=== PATIENT | male | born 1950 | race Caucasian/White ===

== ENCOUNTER 2018-03-16 10:32 | Outpatient (CLI) | payer MEDICARE ==
--- NOTE | 2018-03-16 15:04 | RAD ---
BARIUM SWALLOW ESOPHAGUS: History: Dysphasia. Patient with previous history of esophageal dilatation. The patient also has a hi story of Parkinson's disease. Dose: 1 minute fluoroscopy, DAP 974 mGy*cm^2. FINDINGS: Barium sulfate was given orally. Spot images obtained. The esophagus is unremarkable. No evidence of esophageal webs, bands or stricture seen. The barium wa s ingested without significant abnormalities. It passes into the stomach without difficulty. No signi ficant evidence of distal esophageal abnormalities seen. IMPRESSION: Normal esophagram without significant evidence of high grade esophageal stenosis. POS: BHAVANA
== END 2018-03-16 10:33 | disposition home or self-care (01) ==
LOC: RAD 10:32
PROVIDERS: ATTEND Internal Medicine Geriatric Medicine
DX: R13.14 Dysphagia, pharyngoesophageal phase (principal); C82.98 Follicular lymphoma, unspecified, lymph nodes of multiple sites
CPT/HCPCS: 36415; 74220; 80053; 82248; 83615; 84100; 84550

== ENCOUNTER 2018-10-09 11:47 | Inpatient (IN) | payer MEDICARE ==
[2018-10-09 12:45] LABS: #Eosinphils 0.1 thou/uL (0.0-0.7); #Lymphocytes 1.6 thou/uL (1.20-3.40); #Monocytes 1.3 thou/uL (0.11-0.59); #Neutrophils 10.1 thou/uL (1.40-6.50); %Basophils 0.3 % (0.0-1.0); %Eosinophils 0.6 % (0.0-10.0); %Lymphocytes 11.9 % (21.0-51.0); %Monocytes 9.8 % (0.0-10.0); %Neutrophils 77.4 % (42.0-75.0); Hemoglobin 14.7 g/dL (14.0-18.0); Mean Corpuscular HGB CONC 33.3 g/dL (32.0-36.0); Mean Corpuscular Volume 96.2 fL (78.0-98.0); Mean Platelet Volume 7.2 fL (7.4-10.4); Platelet Count 214 thou/uL (130-400); RBC Distribution Width 11.7 % (11.5-14.5); Red Blood Cell (RBC) Count 4.59 mill/uL (4.70-6.10); White Blood Cell (WBC) Count 13.1 thou/uL (4.8-10.8)
[2018-10-09] MEDS ORDERED: Ondansetron PF 4 MG/2 ML Vial ONE ×2 (12:52→15:48)
[2018-10-09] MEDS ORDERED: Morphine 4 MG/ML VIAL ONE (12:52)
[2018-10-09] MEDS ORDERED: Piperacillin/Tazobactam 4.5 GM VIAL ONE (13:03)
[2018-10-09 13:06] LABS: ALT (SGPT) 20 U/L (8-55); AST (SGOT) 16 U/L (5-34); Albumin 4.1 g/dL (3.4-4.8); Alkaline Phosphatase 36 U/L (40-150); Anion Gap 12 mmol/L (10-20); BUN (Urea Nitrogen) 15 mg/dL (8.4-25.7); Bilirubin, Total 2.7 mg/dL (0.2-1.2); Calc. Creatinine Clearance 0 mL/min (70-130); Calcium 9.3 mg/dL (7.8-10.44); Carbon Dioxide 23 mmol/L (23-31); Chloride 105 mmol/L (98-107); Estimated GFR-MDRD 86; Globulin 2.7 g/dL (2.4-3.5); Glucose 105 mg/dL (80-115); Potassium 3.9 mmol/L (3.5-5.1); Protein, Total 6.8 g/dL (5.8-8.1); Sodium 136 mmol/L (136-145)
[2018-10-09] MEDS ORDERED: Bupivacaine PF 0.5% 30 ML VIAL ONE (13:08)
[2018-10-09] MEDS ORDERED: Bacitracin Zinc Ointment 30 gm TUBE ONE (13:08)
[2018-10-09] MEDS ORDERED: Fentanyl 100 MCG/2 ML VIAL ONE (13:23)
[2018-10-09] MEDS ORDERED: Bisacodyl 10 MG SUPP PR PRN (13:27)
[2018-10-09] MEDS ORDERED: Acetaminophen 325 MG TAB PO PRN (13:27)
[2018-10-09] MEDS ORDERED: TETANUS AND DIPHTHERIA TOX/PF 0.5 ML DISP.SYRIN IM SCH (13:30)
[2018-10-09] MEDS ORDERED: [UNRECOGNIZED DRUG - REMARK] FS SCH (13:30)
[2018-10-09] MEDS ORDERED: Clindamycin/D5W 900 mg/50 ml Premix Bag ONE (13:41)
[2018-10-09] MEDS ORDERED: Promethazine HCl 25 MG/ML VIAL SLOW IVP PRN (15:05)
[2018-10-09] MEDS ORDERED: Promethazine HCl 25 MG/ML VIAL IM PRN (15:05)
[2018-10-09] MEDS ORDERED: Succinylcholine Chloride 20 MG/ML 10 ml SYRINGE FS ONE (15:48)
[2018-10-09] MEDS ORDERED: Dexamethasone 20 MG/5 ML VIAL ONE (15:48)
[2018-10-09] MEDS ORDERED: Lidocaine 1% PF 5 ML VIAL ONE (15:48)
[2018-10-09] MEDS ORDERED: ePHEDrine/0.9% NaCl/PF SYRINGE 50 mg/10 ml ONE (15:48)
[2018-10-09] MEDS ORDERED: PROPOFOL 200 MG/20 ML VIAL ONE (15:48)
[2018-10-09 16:49] VITALS: BMI 22.3
[2018-10-09] MEDS: Ketorolac Tromethamine 30 MG/ML VIAL IVP SCH (17:22)
[2018-10-09] MEDS: Ondansetron PF 4 MG/2 ML Vial IV PRN (17:24)
[2018-10-09] MEDS ORDERED: Acetaminophen 500 MG TAB PO PRN (19:23)
[2018-10-09] MEDS ORDERED: Cepastat Lozenges 1 LOZ PO PRN (19:34)
[2018-10-09] MEDS: Polyethylene Glycol 3350 17 GM Packet PO SCH (20:12)
[2018-10-09] MEDS: Aspirin 81 mg Enteric Coated Tablet PO SCH (20:13)
[2018-10-09] MEDS: Simvastatin 5 MG TAB PO SCH (20:13)
[2018-10-09] MEDS: Benztropine 1 MG TAB PO SCH (20:14)
[2018-10-09] MEDS: Ampicillin/Sulbactam 3 GM in Sodium Chloride 0.9% 100 ML IVPB SCH (21:20)
[2018-10-10] MEDS: Ketorolac Tromethamine 30 MG/ML VIAL IVP SCH ×4 (00:47→18:16)
[2018-10-10] MEDS: Vancomycin HCl 1 GM in Premix Bag 1 BAG IVPB SCH ×2 (02:15→13:52)
[2018-10-10] MEDS: HYDROcodone/Acetaminophen 5/325 mg Tablet PO PRN (02:19)
[2018-10-10] MEDS: Ampicillin/Sulbactam 3 GM in Sodium Chloride 0.9% 100 ML IVPB SCH ×3 (05:26→21:10)
[2018-10-10] MEDS: traMADol HCl 50 MG TAB PO PRN ×2 (05:33→21:09)
[2018-10-10] MEDS: Benztropine 1 MG TAB PO SCH ×2 (08:39→20:38)
[2018-10-10] MEDS: Aspirin 81 mg Enteric Coated Tablet PO SCH ×2 (08:39→08:48)
[2018-10-10] MEDS: Multivit, Therapeutic 1 TAB PO SCH (08:48)
[2018-10-10 09:41] LABS: #Lymphocytes 1.1 thou/uL (1.20-3.40); #Monocytes 0.9 thou/uL (0.11-0.59); %Basophils 0.1 % (0.0-1.0); %Eosinophils 0.2 % (0.0-10.0); %Lymphocytes 7.7 % (21.0-51.0); %Monocytes 6.6 % (0.0-10.0); %Neutrophils 85.4 % (42.0-75.0); Hemoglobin 13.8 g/dL (14.0-18.0); Mean Corpuscular HGB CONC 33.6 g/dL (32.0-36.0); Mean Corpuscular Hemoglobin 32.4 pg (27.0-31.0); Mean Corpuscular Volume 96.5 fL (78.0-98.0); Mean Platelet Volume 7.1 fL (7.4-10.4); Platelet Count 196 thou/uL (130-400); RBC Distribution Width 11.8 % (11.5-14.5); Red Blood Cell (RBC) Count 4.27 mill/uL (4.70-6.10); White Blood Cell (WBC) Count 14.1 thou/uL (4.8-10.8)
--- NOTE | 2018-10-10 15:18 | OP ---
DATE OF PROCEDURE: 10/09/2018 PREOPERATIVE DIAGNOSIS: Left ring finger flexor sheath abscess with chemical and infectious tenosynovitis. POSTOPERATIVE DIAGNOSIS: Left ring finger flexor sheath abscess with chemical and infectious tenosynovitis. INDICATIONS: The patient reports he had vaccinated several of his vaccinated at least the 5th consecutive and stabbed himself with the same needle. He had an injection as well. This occurred at the base of proximal phalanx. By the time he came to us, it was over 12 hours since the incident took place and he complained of tingling, numbness, burning, progressive pain, swelling, poor motion, and erythema from the PIP joint flexion crease all the way proximal to the MP joint flexion crease. For this reason, the operative intervention was indicated. DESCRIPTION OF PROCEDURE: After successful anesthesia, he underwent prep and drape, a time-out was done, identified ring finger. Then, we made a Ev incision beginning 5 cm distal to the puncture wound to a point down to the level of the A1 cassy. We carried this through the skin and subcutaneous tissue around the injection site with serous red thick fluid escaping from the subcutaneous fat and tendon sheath between the A2 and A3 pulleys. We performed a neuroplasty to visualize all the structures flexor digitorum profundus superficialis between the A3 and A2 pulleys and proximal to the A1 cassy. We then did a tendon sheath irrigation beginning at the A3 cassy proximal all the way to the A1 debridement and neuroplasty we irrigated the entire system with from distal to proximal. Tourniquet was deflated. Hemostasis was obtained. We put normal saline soaked gauze. Sterile gauze dressing over this and then secured the catheter and irrigated out with no change in tension. The patient left the operating room with the bulky dressing, covered with Fidel wrap and no evidence of anesthetic operative complication. Job ID: [id number]
[2018-10-10] MEDS: Polyethylene Glycol 3350 17 GM Packet PO SCH (20:38)
[2018-10-10] MEDS: Simvastatin 5 MG TAB PO SCH (20:38)
[2018-10-10] MEDS: Milk Of Magnesia 30 ML UDCUP PO PRN (23:39)
[2018-10-11 01:17] LABS: Vancomycin, Trough 12.6 ug/mL
[2018-10-11] MEDS: Vancomycin HCl 1 GM in Premix Bag 1 BAG IVPB SCH ×2 (01:55→15:10)
[2018-10-11] MEDS: Morphine 4 MG/ML VIAL SLOW IVP PRN (03:52)
[2018-10-11] MEDS: Ondansetron PF 4 MG/2 ML Vial IV PRN (03:56)
[2018-10-11] MEDS: HYDROcodone/Acetaminophen 5/325 mg Tablet PO PRN ×2 (04:02→22:51)
[2018-10-11] MEDS: Ampicillin/Sulbactam 3 GM in Sodium Chloride 0.9% 100 ML IVPB SCH ×3 (05:42→22:01)
[2018-10-11] MEDS: Multivit, Therapeutic 1 TAB PO SCH (09:16)
[2018-10-11] MEDS: Aspirin 81 mg Enteric Coated Tablet PO SCH (09:16)
[2018-10-11] MEDS: Benztropine 1 MG TAB PO SCH ×2 (11:08→22:00)
[2018-10-11] MEDS: Milk Of Magnesia 30 ML UDCUP PO PRN (11:18)
[2018-10-11] MEDS: traMADol HCl 50 MG TAB PO PRN (15:17)
--- NOTE | 2018-10-11 17:36 | CON ---
DATE OF CONSULTATION: 10/11/2018 REASON FOR CONSULTATION: Hand inflammatory process. 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 The patient was seen by Dr. Draper and had an operative procedure on 10/09. The report was reviewed. An incision was made distal to the puncture wound and carried through the skin around the injection site. There was thick fluid escaping from the subcutaneous fat and tendon sheath and tendon sheath irrigation was completed. Cultures were submitted. Currently, he has the hand wrapped. He denies any headaches, visual symptoms, sore throat, odynophagia, or dysphagia. No cough, sputum production, chest pain. No abdominal pain or diarrhea. No genitourinary symptoms. No joint symptoms. No other skin disorder. PAST MEDICAL HISTORY: Prostate cancer in remission after prostatectomy, Parkinson disease, hyperlipidemia, and hypertension. PAST SURGICAL HISTORY: Appendectomy, prostatectomy. SOCIAL HISTORY: [place] smoker[place] ALLERGIES: AMANTADINE WITH ANXIETY. CURRENT MEDICATIONS: Unasyn and vancomycin. PHYSICAL EXAMINATION: VITAL SIGNS: Mild elevation of systolic blood pressure, is afebrile, O2 sats 97% room air. GENERAL: Appears in no distress. SKIN: With the surgical intervention site dressed. Dressing not removed. Peripheral IV access. He is urinating or voiding in the toilet. HEENT: Ocular movements conjugate. No lymphadenopathy. Oral cavity moist. NECK: Supple. LUNGS: Symmetric clear breath sounds. HEART: S1, S2. Regular rate. No S3 or S4. ABDOMEN: Soft, not distended or tender. No ascites. No bladder distention. EXTREMITIES: No other joint inflammatory process noted. Pulses 1+ in dorsalis pedis. Moves extremities equally. NEUROLOGIC: Cognitive function appears to be intact. Slight rigidity in movements, but no tremor noted. LABORATORY DATA: WBC count 14,000, hemoglobin 13, platelets 196, 85% neutrophils. Chemistry fairly unremarkable except for bilirubin 2.7. CRP was 1.78, albumin 4.1. Vancomycin trough 12.6. Microbiology with preliminary findings with rare mixed skin christina present in both samples. Blood culture, no growth at 48 hours. IMAGING STUDIES: None available. 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 The vaccine was multiple live attenuated respiratory viruses. Now, he has developed inflammatory process, likely bacterial tenosynovitis with cellulitis. No obvious abscess or osteomyelitis noted. We will wait on the culture results and then define outpatient treatment. Hopefully, oral antimicrobial therapy transition depending on the results of the identification susceptibility profile of the organism. Job ID: [id number]
[2018-10-11 21:55] LABS: #Eosinphils 0.2 thou/uL (0.0-0.7); #Lymphocytes 1.2 thou/uL (1.20-3.40); #Monocytes 1.2 thou/uL (0.11-0.59); %Basophils 0.5 % (0.0-1.0); %Eosinophils 2.3 % (0.0-10.0); %Lymphocytes 12.4 % (21.0-51.0); %Monocytes 12.4 % (0.0-10.0); %Neutrophils 72.4 % (42.0-75.0); Hemoglobin 13.7 g/dL (14.0-18.0); Mean Corpuscular HGB CONC 33.4 g/dL (32.0-36.0); Mean Corpuscular Hemoglobin 32.7 pg (27.0-31.0); Mean Corpuscular Volume 98.1 fL (78.0-98.0); Mean Platelet Volume 7.1 fL (7.4-10.4); Platelet Count 211 thou/uL (130-400); RBC Distribution Width 11.6 % (11.5-14.5); Red Blood Cell (RBC) Count 4.18 mill/uL (4.70-6.10); White Blood Cell (WBC) Count 9.7 thou/uL (4.8-10.8)
[2018-10-11] MEDS: Simvastatin 5 MG TAB PO SCH (22:00)
[2018-10-11] MEDS: Polyethylene Glycol 3350 17 GM Packet PO SCH (22:00)
[2018-10-12] MEDS: Vancomycin HCl 1 GM in Premix Bag 1 BAG IVPB SCH (01:04)
[2018-10-12] MEDS ORDERED: hydrALAZINE 20 MG/ML VIAL SLOW IVP PRN (01:44)
[2018-10-12] MEDS: Morphine 4 MG/ML VIAL SLOW IVP PRN (03:09)
[2018-10-12] MEDS: Ondansetron PF 4 MG/2 ML Vial IV PRN (03:11)
[2018-10-12] MEDS ORDERED: Amlodipine 5 MG TAB PO SCH ×2 (03:15→09:00)
[2018-10-12] MEDS ORDERED: Promethazine HCl 12.5 MG in Sodium Chloride 0.9% 50 ML IVPB PRN (05:25)
[2018-10-12] MEDS: Ampicillin/Sulbactam 3 GM in Sodium Chloride 0.9% 100 ML IVPB SCH (06:31)
[2018-10-12] MEDS: Multivit, Therapeutic 1 TAB PO SCH (08:38)
[2018-10-12] MEDS: Benztropine 1 MG TAB PO SCH (08:41)
[2018-10-12] MEDS: Aspirin 81 mg Enteric Coated Tablet PO SCH (08:41)
[2018-10-12 12:22] VITALS: BP 162/85; TEMP 97.6
[2018-10-12 13:39] LABS: Vancomycin, Trough 13.6 ug/mL
--- NOTE | 2018-10-12 13:50 | PDOC.PN ---
- Subjective Encounter Start Date: 10/12/18 Encounter Start Time: 13:48 Mr. Funk was seen today in follow-up of elevated blood pressure. He tells me he has never had elevated blood pressure, and usually it runs low. His also tells me he has a history of Parkinson's Disease, and that he gets dizzy when he stands up. He denies any complaints at this time. He denies chest pain or shortness of breath, no palpitations, and denies any nausea or vomiting. - Objective MAR Reviewed: Yes Vital Signs & Weight: Vital Signs (12 hours) Temp Pulse Resp BP BP BP Pulse Ox 10/12/18 11:10 97.6 F 79 18 162/85 H 100 10/12/18 10:15 82 142/75 H 10/12/18 08:38 108 H 181/100 H 10/12/18 08:03 98.1 F 117 H 18 180/104 H 96 10/12/18 07:14 98 10/12/18 03:56 97.8 F 84 18 150/78 H 98 10/12/18 03:24 111 H 177/91 H 10/12/18 01:56 70 171/93 H Weight Admit Weight 160 lb Weight 160 lb I&O: 10/11/18 10/12/18 10/13/18 06:59 06:59 06:59 Intake Total 1780 1400 1000 Balance 1780 1400 1000 Result Diagrams: 10/11/18 21:34 10/09/18 12:32 Phys Exam - Physical Examination HEENT: PERRLA Respiratory: no wheezing, no rales, no rhonchi, clear to auscultation bilateral Cardiovascular: RRR, no significant murmur, no rub Gastrointestinal: soft, non-tender, no distention, positive bowel sounds Musculoskeletal: no edema, pulses present Neurological: non-focal, normal sensation Dx/Plan (1) Elevated BP without diagnosis of hypertension Code(s): R03.0 - ELEVATED BLOOD-PRESSURE READING, W/O DIAGNOSIS OF HTN Status : Acute (2) Parkinsons disease Code(s): G20 - PARKINSON'S DISEASE Status: Acute (3) Tenosynovitis Code(s): M65.9 - SYNOVITIS AND TENOSYNOVITIS, UNSPECIFIED Status: Acute - Plan * Elevated Blood pressure- will treat this only as needed for elevated systolic blood pressure more than 180. He is asymptomatic. He has a history of Parkinson' s disease and this puts him at risk for Orthostatic Hypotension. He also has not carried a diagnosis of Hypertension up to this point, and sees his Primary Care Physician, and Dr. Casas, who is his Fence Machine Operator on a regular basis. This could a transient finding while he is hospitalized. I have asked him to follow-up with Dr. Harris in 1 week, and monitor his blood pressure at home.
== END 2018-10-12 14:37 | disposition home or self-care (01) | DRG 558 ==
LOC: ERS 11:47 → SDC 14:12 → SURG B 16:05
PROVIDERS: ADMIT Orthopaedic Surgery Hand Surgery; ATTEND Orthopaedic Surgery Hand Surgery
PROC: 3E0T3BZ Introduction of Anesthetic Agent into Peripheral Nerves and Plexi, Percutaneous Approach (ICD-10-PCS; principal; 2018-10-09)
DX: M65.042 Abscess of tendon sheath, left hand (principal); M65.142 Other infective (teno)synovitis, left hand; G20 Parkinson's disease; E78.5 Hyperlipidemia, unspecified; I10 Essential (primary) hypertension
CPT/HCPCS: 36415; 80053; 80202; 85025; 85652; 86140; 87040; 87070; 87205; 96365; 96375; C1758; J0295; J0360; J1100; J1885; J2001; J2270; J2405; J2543; J2550; J2704; J3010; J3370; J3490; J7050; S0020

== ENCOUNTER 2018-10-19 13:23 | Day surgery (SDC) | payer MEDICARE ==
[2018-10-18 09:26] VITALS: BMI 21.9
[2018-10-19] MEDS ORDERED: Dexamethasone 20 MG/5 ML VIAL ONE (13:26)
[2018-10-19] MEDS ORDERED: Metoclopramide HCl 10 MG/2 ML VIAL ONE (13:26)
[2018-10-19] MEDS ORDERED: diphenhydrAMINE 50 MG/ML VIAL ONE (13:26)
[2018-10-19] MEDS ORDERED: Ondansetron PF 4 MG/2 ML Vial ONE (13:26)
[2018-10-19] MEDS ORDERED: Lidocaine 1% PF 5 ML VIAL ONE (13:26)
[2018-10-19] MEDS ORDERED: Ketorolac Tromethamine 30 MG/ML VIAL ONE (13:26)
[2018-10-19] MEDS ORDERED: ePHEDrine/0.9% NaCl/PF SYRINGE 50 mg/10 ml ONE (13:26)
[2018-10-19] MEDS ORDERED: PROPOFOL 200 MG/20 ML VIAL ONE (13:26)
[2018-10-19] MEDS ORDERED: Vancomycin HCl 1 GM in Premix Bag 1 BAG IVPB SCH (14:15)
[2018-10-19] MEDS ORDERED: Bupivacaine PF 0.5% 30 ML VIAL ONE (15:03)
[2018-10-19] MEDS ORDERED: Thrombin 5000 UNITS/5 ML VIAL ONE (15:04)
[2018-10-19] MEDS ORDERED: Sodium Chloride 0.9% 0 ML ONE (15:04)
[2018-10-19] MEDS ORDERED: Bacitracin Zinc Ointment 30 gm TUBE ONE (15:04)
[2018-10-19] MEDS ORDERED: Fentanyl 100 MCG/2 ML VIAL ONE (15:05)
[2018-10-19] MEDS ORDERED: HYDROcodone/Acetaminophen 5/325 mg Tablet ONE ×2 (17:34→17:36)
--- NOTE | 2018-10-20 01:16 | OP ---
DATE OF PROCEDURE: 10/19/2018 PREOPERATIVE DIAGNOSIS: 10 cm wound, right hand, open after previous infection and . FINDINGS: Wound with no gross infection , separation at its widest, no tendon inflammation or desiccation seen. PROCEDURES PERFORMED: 1. Debridement of wound 10 cm. 2. Closure of wound, 10 cm, single-layer technique. Debridement techniques follows: 1. Excisional technique. 2. Use of instrumentation to include curette, tenotomy scissors, Adsons, and [place] blade. 3. Level was down to and including the tendon. The tendon was inspected and found to have no abnormality. Indeed, there was no complication, purulence, infection, or necrosis seen other than a small amount of wound edge maceration. SPECIMEN: None. TOURNIQUET TIME: None. ESTIMATED BLOOD LOSS: 10 mL. OVERALL FINDING: Clean wound. DESCRIPTION OF PROCEDURE: After successful general LMA technique, limb was prepped and draped. Time-out was done appropriately. There was no tourniquet used. The debridement techniques described above were used and the tendon was lifted. There was no evidence of infection or tenosynovial involvement. We debrided the wound edges using technique listed above, this skin via blunt dissection and then began closure with a 4-0 nylon interrupted simple pattern. There was no complication. Bulky dressing was applied. The patient left the operating room without evidence of anesthetic or operative complications. Job ID: [id number]
--- NOTE | 2018-10-24 05:46 | PQF ---
[facility] POST DISCHARGE CLINICAL DOCUMENTATION IMPROVEMENT CLARIFICATION FORM l Todays Date: 10/24/18 l Patients Name AMEYA VALENTINO l l Admit Date 10/19/18 l Disch Date 10/19/18 Fur Finisher Name Yeyo Sandhu Email: [email or web address] Cell: [phone] To be completed by Fur Finisher: Present Clinical Indicators - Signs / Symptoms Results and Location in Medical Record [ ] Documentation of: [ ] [ ] Documentation of: [ ] [ ] Documentation of: [ ] [ ] Documentation of: [ ] [ ] Risks [ ] [ ] [ ] Treatment [ ] OPEN WOUND OF RIGHT HAND QUERY FOR SIZE AREA (sq. cm) DEBRIDEMENT RIGHT HAND WOUND [ ] [ ] To be completed by Physician: AKIRA CARDOZA The documentation in this patients record requires clarification to ensure coding compliance and accuracy. Check the appropriate box and include in your discharge summary. [ ] [ ] [ ] [ ] Please check this box if this does not apply to this patient [ ] Unable to determine [ ] Other diagnosis: Review the following information and exercise your independent professional judgment in responding to the clarification. Based upon the clinical findings, risk factors, and treatment, please clarify if you are treating one of the above probable or suspected diagnoses. Physician Signature: Date Time MTDD
== END 2018-10-19 18:10 | disposition home or self-care (01) ==
LOC: SDC 13:23
PROVIDERS: ATTEND Orthopaedic Surgery Hand Surgery
PROC: 0LB70ZZ Excision of Right Hand Tendon, Open Approach (ICD-10-PCS; principal; 2018-10-19)
DX: S61.401A Unspecified open wound of right hand, initial encounter (principal); Z79.82 Long term (current) use of aspirin; Z79.899 Other long term (current) drug therapy; Z88.5 Allergy status to narcotic agent; Z88.8 Allergy status to other drugs, medicaments and biological substances
CPT/HCPCS: 85652; J1100; J1200; J1885; J2001; J2405; J2704; J2765; J3010; J3370; J3490; S0020

== ENCOUNTER 2019-10-12 15:09 | Outpatient (CLI) | payer MEDICARE ==
--- NOTE | 2019-10-12 15:25 | RAD ---
XR Lumbar Spine 2 Or 3 View HISTORY: Acute midline low back pain FINDINGS: No fracture, subluxation or bony destruction is seen. Mild degenerative changes are present.
== END 2019-10-12 15:10 | disposition home or self-care (01) ==
LOC: BICRAD 15:09
PROVIDERS: ATTEND Family Medicine
DX: M54.5 Low back pain (principal)
CPT/HCPCS: 72100

== ENCOUNTER 2019-11-14 13:12 | Outpatient (CLI) | payer MEDICARE ==
--- NOTE | 2019-11-14 14:55 | CT ---
CT lumbar spine noncontrast HISTORY: Low back pain. FINDINGS: Vertebral body heights and alignment are maintained. No acute fracture or dislocation. Images including the retroperitoneum show prominent calcification throughout the arterial structures. At the L4-5 level, there is posterior and right posterolateral disc bulge that extends into the right neural foramen. Resultant moderate stenosis of the right neural foramen at this level. Mild stenosis of the central canal. At the lumbosacral junction, well corticated linear osseous density extends through the left pars int erarticularis. IMPRESSION: Disc bulge and degenerative changes at the L4-5 level resulting in significant stenosis o f the right neural foramen. Clinical correlation regarding the right L4 dermatome is required. Incidental note of left unilateral spondylolysis at the lumbosacral junction without spondylolisthesi s. Atherosclerosis.
== END 2019-11-14 13:13 | disposition home or self-care (01) ==
LOC: BICCT 13:12
PROVIDERS: ATTEND Family Medicine
DX: M54.5 Low back pain (principal); M47.816 Spondylosis without myelopathy or radiculopathy, lumbar region; M48.061 Spinal stenosis, lumbar region without neurogenic claudication; M51.86 Other intervertebral disc disorders, lumbar region; M47.817 Spondylosis without myelopathy or radiculopathy, lumbosacral region
CPT/HCPCS: 72131

== ENCOUNTER 2022-03-07 08:12 | Emergency (ER) | payer MEDICARE ==
[2022-03-07] MEDS ORDERED: Acetaminophen 325 MG TAB ONE (08:43)
[2022-03-07] MEDS ORDERED: Boostrix 0.5 ML (Tdap) VIAL ONE (08:43)
[2022-03-07] MEDS ORDERED: Lidocaine 1% PF 5 ML VIAL ONE ×2 (08:48→08:51)
[2022-03-07] MEDS ORDERED: Lidocaine 1% (PF) 30 ML VIAL ONE (08:50)
[2022-03-07] MEDS ORDERED: Ketorolac Tromethamine 30 MG/ML VIAL ONE (10:27)
== END 2022-03-07 10:55 | disposition home or self-care (01) ==
LOC: ERS 08:12
DX: S16.1XXA Strain of muscle, fascia and tendon at neck level, initial encounter (principal); S01.111A Laceration without foreign body of right eyelid and periocular area, initial encounter; S00.81XA Abrasion of other part of head, initial encounter; Z23 Encounter for immunization; G20 Parkinson's disease; E78.5 Hyperlipidemia, unspecified; E78.00 Pure hypercholesterolemia, unspecified; I10 Essential (primary) hypertension; Z79.899 Other long term (current) drug therapy; Z79.82 Long term (current) use of aspirin; W06.XXXA Fall from bed, initial encounter
CPT/HCPCS: 12011; 70450; 70486; 72125; 90471; 90715; 96372; J1885; J2001

== ENCOUNTER 2022-05-05 09:10 | Outpatient (CLI) | payer MEDICARE | END 2022-05-05 09:11 | disposition home or self-care (01) | LOC: CT 09:10 | PROVIDERS: ATTEND Psychiatry & Neurology Neurology | DX: R41.82 Altered mental status, unspecified (principal); Z91.81 History of falling | CPT/HCPCS: 70450 ==

== ENCOUNTER 2024-06-21 08:25 | Day surgery (SDC) | payer MEDICARE ==
[2024-06-20 13:27] VITALS: BMI 23.6
[2024-06-21] MEDS ORDERED: PROPOFOL 20 ML ONE (09:26)
[2024-06-21] MEDS ORDERED: Lidocaine 2% PF 5 ML VIAL ONE (09:26)
[2024-06-21] MEDS ORDERED: Rocuronium Bromide 10 MG/ML (10ML VIAL) ONE (09:26)
[2024-06-21] MEDS ORDERED: Iopamidol 30 ML ONE (10:36)
[2024-06-21] MEDS ORDERED: Indomethacin 50 MG SUPP ONE (10:37)
[2024-06-21] MEDS ORDERED: ePHEDrine Sulfate 50 MG/10 ML VIAL ONE (10:56)
[2024-06-21] MEDS ORDERED: SUCCINYLCHOLINE/SOD CL,ISO/PF 200 MG/10 ML SYRINGE FS ONE (10:56)
[2024-06-21] MEDS ORDERED: cefTRIAXone (ROCEPHIN) 1 GM VIAL ONE (11:13)
[2024-06-21] MEDS ORDERED: Sodium Chloride 0.9% 100 ML ONE (11:13)
[2024-06-21] MEDS ORDERED: Labetalol HCl 100 MG/20 ML VIAL ONE (13:26)
== END 2024-06-21 14:11 | disposition home or self-care (01) ==
LOC: SDC 08:25
PROVIDERS: ATTEND Internal Medicine Gastroenterology
PROC: 0FC98ZZ Extirpation of Matter from Common Bile Duct, Via Natural or Artificial Opening Endoscopic (ICD-10-PCS; principal; 2024-06-21)
DX: K80.50 Calculus of bile duct without cholangitis or cholecystitis without obstruction (principal); I25.10 Atherosclerotic heart disease of native coronary artery without angina pectoris; K83.8 Other specified diseases of biliary tract; G20.B2 Parkinson's disease with dyskinesia, with fluctuations; Z79.899 Other long term (current) drug therapy
CPT/HCPCS: 43262; 43264; 74330; C1725; J0696; J2001; J2704; Q9967

== ENCOUNTER 2025-07-11 08:58 | Outpatient (CLI) | payer MEDICARE | END 2025-07-11 08:59 | disposition home or self-care (01) | LOC: ULT 08:58 | PROVIDERS: ATTEND Family Medicine | DX: R19.8 Other specified symptoms and signs involving the digestive system and abdomen (principal) | CPT/HCPCS: 76705 ==